=== PATIENT | female | born 1970 | race Caucasian/White ===

== ENCOUNTER 2022-12-16 11:47 | Outpatient (CLI) | payer BC, SELFPAY | END 2022-12-16 11:48 | disposition home or self-care (01) | PROVIDERS: PCP Family Medicine; Visit Provider Family Medicine | DX: I10 Essential (primary) hypertension (principal) | CPT/HCPCS: 80048; 80061 ==

== ENCOUNTER 2023-01-24 09:17 | Outpatient (CLI) | payer BC, SELFPAY ==
--- NOTE | 2023-01-24 10:54 | W.ANESCHARGE ---
Anesthesia Charges Start Date/Time Anesthesia Start Date: 01/24/23 Anesthesia Start Time: 10:22 Stop Date/Time Anesthesia Stop Date: 01/24/23 Anesthesia Stop Time: 10:58
== END 2023-01-24 09:18 | disposition home or self-care (01) ==
LOC: OP CLINIC 09:19
PROVIDERS: PCP Family Medicine; Visit Provider Surgery
DX: Z12.11 Encounter for screening for malignant neoplasm of colon (principal); K62.1 Rectal polyp
CPT/HCPCS: 00811; 45385; 88305; J2704

== ENCOUNTER 2023-09-05 14:13 | Outpatient (CLI) | payer BC, SELFPAY ==
--- NOTE | 2023-09-05 14:40 | MM_ITS ---
Patient: MANE DANIEL Facility:?[facility] Patient ID:?[id number] Site Patient ID:?[id number] Site :?[id number] Study:?XRay-Breast Bilateral 3D W/CAD-09/05/2023 10:33:08 PM Ordering Physician:MARTA Final Report: BILATERAL SCREENING MAMMOGRAM WITH COMPUTER-AIDED DETECTION AND TOMOSYNTHESIS TECHNIQUE: CC and MLO views were obtained. These mammographic images have been obtained using full-field digital technique. These mammographic images were interpreted with the benefit of computer-aided detection. Breast Tomosynthesis was used in this interpretation. COMPARISON FILM: 06/12/18, 06/01/18. FINDINGS: The breasts are heterogeneously dense, which may obscure small masses. IMPRESSION: There is no radiographic evidence for malignancy. ASSESSMENT: BI-RADS Category 2: Benign RECOMMENDATION: Routine screening mammogram in 1 year. A lay language report of this examination will be provided to the patient. Keith Meadows M.D. Diagnostic Radiologist [email or web address] DSM/sp R& Transcribed: 3:58 p.m. SP/Dictated by: Keith Meadows MD @ 09/12/2023 9:28:00 AM Signed by:?Keith Meadows MD @09/12/2023 4:00:55 PM (Electronic Signature)
== END 2023-09-05 14:14 | disposition home or self-care (01) ==
LOC: MAMMO 14:13
PROVIDERS: PCP Family Medicine; Visit Provider Family Medicine
DX: Z12.31 Encounter for screening mammogram for malignant neoplasm of breast (principal); R92.2 Inconclusive mammogram
CPT/HCPCS: 77063; 77067

== ENCOUNTER 2024-06-14 07:35 | Outpatient (CLI) | payer BC, SELFPAY | END 2024-06-14 07:36 | disposition home or self-care (01) | PROVIDERS: PCP Family Medicine; Visit Provider Family Medicine | DX: I10 Essential (primary) hypertension (principal); G47.00 Insomnia, unspecified | CPT/HCPCS: 80048; 80061; 85025 ==

== ENCOUNTER 2024-11-20 16:24 | Outpatient (CLI) | payer BC, SELFPAY ==
--- NOTE | 2024-11-20 16:40 | CRLHL7_ITS ---
For Patients: As a result of the Century Cures Act, medical imaging exams and procedure reports are released immediately into your electronic medical record. You may view this report before your referring provider. If you have questions, please contact your health care provider. INDICATION: BILATERAL SCREENING MAMMOGRAM, ASYMPTOMATIC 54 Y/0 FEMALE COMPARISON: 09/05/2023, 06/12/2018, 05/31/2018 TECHNIQUE: Digital mammogram in CC and MLO projections including computer-aided detection (CAD) and tomosynthesis. BREAST COMPOSITION: There are scattered areas of fibroglandular density. FINDINGS: No suspicious findings. ASSESSMENT: BI-RADS 1 Negative RECOMMENDATION: Annual screening mammogram. A lay language report of this examination will be provided to the patient. Dictated by: Susan Bautista MD @ 11/22/2024 11:36:06 (Electronically Signed)
== END 2024-11-20 16:25 | disposition home or self-care (01) ==
LOC: MAMMO 16:25
PROVIDERS: PCP Family Medicine; Visit Provider Family Medicine
DX: Z12.31 Encounter for screening mammogram for malignant neoplasm of breast (principal)
CPT/HCPCS: 77063; 77067

== ENCOUNTER 2025-01-10 17:20 | Outpatient (CLI) | payer BC, SELFPAY ==
--- NOTE | 2025-01-10 17:30 | CRLHL7_ITS ---
For Patients: As a result of the Century Cures Act, medical imaging exams and procedure reports are released immediately into your electronic medical record. You may view this report before your referring provider. If you have questions, please contact your health care provider. EXAM: MRI OF THE RIGHT KNEE, WITHOUT CONTRAST CLINICAL INDICATION: Knee pain. PRIOR SURGERY: None reported. COMPARISON PLAIN FILMS: 05 November 2024 COMPARISON CROSS-SECTIONAL IMAGING STUDIES: None available at time of interpretation. TECHNICAL: Axial, sagittal and coronal T1, PD, PD FS and T2 FS images. Some motion degrades all provided sequences. FINDINGS: OSSEOUS STRUCTURES: No fracture, marrow edema or marrow replacement process. JOINT SPACE AND CAPSULE: Effusion: Small effusion. No significant synovitis appreciated. Joint Bodies: None seen. CRUCIATE LIGAMENTS: Anterior Cruciate Ligament: Normal. Posterior Cruciate Ligament: Normal. EXTENSOR MECHANISM: Distal Quadriceps Tendon: Normal. Patellar Tendon: Normal. Medial Patellar Retinaculum and Medial Patellofemoral Ligament: Normal. Lateral Patellar Retinaculum: Normal. Normal patellar alignment. No patella felix. Normal trochlear depth. Normal lateral trochlear inclination. MEDIAL COLLATERAL LIGAMENT AND POSTEROMEDIAL CORNER COMPLEX: Medial Collateral Ligament: Normal. Medial Head of the Gastrocnemius and Semimembranosus Tendons: Normal. LATERAL COLLATERAL LIGAMENT COMPLEX AND POSTEROLATERAL CORNER COMPLEX: Fibular Collateral Ligament: Normal. Distal Biceps Femoris Tendon Complex: Normal. Iliotibial Band: Normal. Popliteus Tendon: Normal. Posterolateral Corner Capsule: Normal. MEDIAL COMPARTMENT: Medial Meniscus: Slightly complex near full-thickness longitudinal tear mid posterior horn. Extrusion of body and anterior horn. Intact root. Articular Cartilage: Up to full-thickness grade 4 cartilage loss mid outer margin of the compartment with patchy subchondral sclerosis and edema and small marginal osteophytes. LATERAL COMPARTMENT: Lateral Meniscus: Normal size and morphology without tear. Articular Cartilage: Heterogeneous signal with irregular grade 2 to grade 3 thinning. No significant secondary degenerative finding. PATELLOFEMORAL COMPARTMENT: Articular Cartilage: Patchy heterogeneous signal with grade 2 to grade 3 thinning and marginal osteophytes. PERIARTICULAR SOFT TISSUES: Popliteal Cyst: 4 x 1 cm cyst. Periarticular Cysts or Ganglia: None. Bursae: No prepatellar, superficial infrapatellar, deep infrapatellar, pes anserinus or semimembranosus/MCL bursitis. Musculature: No muscle atrophy or muscle edema. Subcutaneous and Soft Tissues: No subcutaneous or soft tissue mass, edema or fluid collection. Neurovascular Structures: Normal. IMPRESSION: 1. Complex near full thickness longitudinal tear mid posterior horn medial meniscus. 2. 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 3. Small bland joint effusion. Small popliteal Pagan`s cyst. Dictated by Prashant Cantu MD @ 01/11/2025 11:53:50 AM (Electronically Signed)
== END 2025-01-10 17:21 | disposition home or self-care (01) ==
LOC: MRI 17:20
PROVIDERS: PCP Family Medicine; Visit Provider Family Medicine
DX: M25.561 Pain in right knee (principal); S83.231A Complex tear of medial meniscus, current injury, right knee, initial encounter; M17.11 Unilateral primary osteoarthritis, right knee; M25.461 Effusion, right knee; M71.21 Synovial cyst of popliteal space [Baker], right knee
CPT/HCPCS: 73721